=== PATIENT | female | born 1985 | race Caucasian/White ===

== ENCOUNTER 2018-04-30 10:53 | Emergency (ER) | payer OTHER ==
[~2018-04-30] VITALS: Ht 157.5 cm; Wt 77.1 kg
--- NOTE | 2018-04-30 11:10 | NUR ---
AAOX3, came to ER c/o SOB this AM and "pulsating in my throat yesterday". Denies any complaint at this time. RR is even and unlabored with nad noted. Awaiting md for eval.
--- NOTE | 2018-04-30 11:36 | NUR ---
ekg in progress at this time.
[2018-04-30 12:25] VITALS: BP 124/79
== END 2018-04-30 12:26 | disposition home or self-care (01) ==
LOC: ER 10:56
DX: R00.2 Palpitations (principal); Z98.890 Other specified postprocedural states
CPT/HCPCS: 71045; 84703; 93005; 99285; A4606; Z7610

== ENCOUNTER 2018-11-04 09:04 | Emergency (ER) | payer OTHER ==
[~2018-11-04] VITALS: Ht 160 cm; Wt 74.8 kg
--- NOTE | 2018-11-04 09:58 | NUR ---
C/O LEFT UPPER BACK SHARP PAIN x 3 WKS AND GOT WORST TODAY 8/10 PS. PT AAOX4, VSS. DENIES CP, SOB, DIZZINESS, N/V/D @ THIS TIME. PT SEEN & EVAL'D BY DR. ENG. PLACED ON EXTRAS CASTING DIRECTOR, SR. WILL CONT TO MONITOR.
[2018-11-04 10:00] LABS: BASOPHILS # (AUTO) 0.1 /CMM (0.0-0.2); HEMATOCRIT 44 % (33-45); HEMOGLOBIN 14.6 g/dL (11.5-14.8); LYMPHOCYTES # (AUTO) 1.6 /CMM (0.8-4.8); LYMPHOCYTES % (AUTO) 22.5 % (20.0-44.0); MEAN CORPUSCULAR HGB CONC 33 g/dl (31.0-36.0); MEAN CORPUSCULAR VOLUME 91 fL (82-100); MONOCYTES # (AUTO) 0.3 /CMM (0.1-1.30); MONOCYTES % (AUTO) 4.2 % (2.0-12.0); NEUTROPHILS # (AUTO) 4.8 /CMM (1.8-8.9); NEUTROPHILS % (AUTO) 67.3 % (43.0-81.0); PLATELET COUNT (AUTO) 186 /CMM (150-450); RED BLOOD CELL COUNT(AUTO) 4.81 MIL/uL (4.0-5.2); WHITE BLOOD COUNT (AUTO) 7.2 K/uL (4.3-11.0)
[2018-11-04] MEDS ORDERED: KETOROLAC TROMETHAMINE INJ 30 MG/ML VIAL IV ONE (10:00)
[2018-11-04 10:10] LABS: CALCIUM, SERUM 8.9 mg/dL (8.5-10.1); CARBON DIOXIDE 27 mmol/L (21-32); CHLORIDE 106 mmol/L (98-107); CREATININE 0.7 mg/dL (0.6-1.3); GLUCOSE 124 mg/dL (74-106); POTASSIUM 4.2 mmol/L (3.5-5.1); SODIUM SERUM 140 mmol/L (136-145); UREA NITROGEN, BLOOD 13 mg/dL (7-18)
[2018-11-04] MEDS ORDERED: KETOROLAC TROMETHAMINE 15 MG/ML VIAL ONE (10:17)
--- NOTE | 2018-11-04 10:21 | NUR ---
PT REFUSED PAIN MED. AWARE.
[2018-11-04 10:32] LABS: D-DIMER 0.19 mg/L(FEU (0.17-0.50)
--- NOTE | 2018-11-04 11:42 | NUR ---
IV removed. Catheter intact and site benign. Pressure and 4x4 applied to site. No bleeding noted.Patient discharged to home in stable condition. Written and verbal after care instructions given. Patient verbalizes understanding of instruction.
[2018-11-04 11:43] VITALS: BP 118/68
== END 2018-11-04 11:44 | disposition home or self-care (01) ==
LOC: ER 09:05
DX: M54.6 Pain in thoracic spine (principal); Z98.890 Other specified postprocedural states
CPT/HCPCS: 36415; 71045-TC; 80048-TC; 84484-TC; 84703-TC; 85025-TC; 85378-TC; 85730-TC; J1885

== ENCOUNTER 2019-12-17 10:31 | Emergency (ER) | payer OTHER ==
[~2019-12-17] VITALS: Ht 160 cm; Wt 77.6 kg
[2019-12-17 10:50] VITALS: BP 138/88
[2019-12-17] MEDS ORDERED: IBUPROFEN 400 MG TABLET ONE (11:16)
[2019-12-17] MEDS ORDERED: predniSONE 10 MG TABLET ONE (11:17)
[2019-12-17] MEDS ORDERED: predniSONE 20 MG TABLET ONE (11:17)
[2019-12-17] MEDS ORDERED: IBUPROFEN 400 MG TABLET PO ONE (11:30)
[2019-12-17] MEDS ORDERED: predniSONE 50 MG TABLET PO ONE (11:30)
== END 2019-12-17 11:23 | disposition home or self-care (01) ==
LOC: ER 10:37
DX: J02.0 Streptococcal pharyngitis (principal)
CPT/HCPCS: 99283; J7512 ×2

== ENCOUNTER 2020-07-24 15:10 | Emergency (ER) | payer OTHER ==
[~2020-07-24] VITALS: Ht 160 cm; Wt 74.4 kg
[2020-07-24 15:19] VITALS: BP 140/73
--- NOTE | 2020-07-24 15:20 | NUR ---
BIBSLEF C/O HEARTBURN SINCE LAST MONTH AND C/O SORETHROAT AND "FEELING LIKE SOMETHING IS IN MY THROAT." NO FEVER NOTED. NO COUGH. NO N/V. AWAITING FOR MD ZELAYA
--- NOTE | 2020-07-24 15:29 | NUR ---
MD BROWN AT BEDSIDE
== END 2020-07-24 15:57 | disposition home or self-care (01) ==
LOC: ER 15:14
DX: K21.9 Gastro-esophageal reflux disease without esophagitis (principal); Z98.890 Other specified postprocedural states

== ENCOUNTER 2022-06-10 11:14 | Emergency (ER) | payer OTHER ==
[~2022-06-10] VITALS: Ht 157.5 cm; Wt 73.5 kg
[2022-06-10 11:14] VITALS: BP 130/89
[2022-06-10] MEDS ORDERED: IBUP-1957 PO ×2 (11:33→11:44)
--- NOTE | 2022-06-10 11:46 | NUR ---
Patient discharged to home in stable condition. Written and verbal after care instructions given. Patient verbalizes understanding of instruction.
== END 2022-06-10 11:46 | disposition home or self-care (01) ==
LOC: ER 11:18
DX: M54.50 Low back pain, unspecified (principal); Z79.1 Long term (current) use of non-steroidal anti-inflammatories (NSAID)

== ENCOUNTER 2023-11-23 12:58 | Emergency (ER) | payer OTHER ==
[~2023-11-23] VITALS: Ht 160 cm; Wt 73.5 kg
[~2023-11-23 12:58] MED LIST: IBUP-1957 PO
[2023-11-23 13:44] VITALS: BP 123/71; TEMP 98.1; O2SAT 98
[2023-11-23] MEDS ORDERED: GUAI-671 PO (14:29)
== END 2023-11-23 14:36 | disposition home or self-care (01) ==
LOC: ER 13:12
DX: J20.9 Acute bronchitis, unspecified (principal)